=== PATIENT | female | born 1985 | race Caucasian/White ===

== ENCOUNTER 2018-04-29 11:00 | Emergency (ER) | payer OTHER, SELFPAY ==
[2018-04-29] MEDS ORDERED: NA CHLORIDE 0.9% 1,000 ML ONE ×2 (11:54→13:47)
[2018-04-29 12:08] LABS: Absolute Lymphocytes (CBC) 0.7 K/uL (0.7-4.9); Absolute Neutrophil 12.2 K/uL (1.8-8.0); Basophils % 0.2 % (0-1.3); Hematocrit 42.8 % (36.0-45.0); Lymphocytes % 4.8 % (15.3-44.8); MCH 31.2 pg (27.0-35.0); MCV 89.3 fL (80-100); MPV 8.3 fL (7.6-11.3); Monocytes % 7.4 % (3.3-12.3); RBC Red Blood Cell Count 4.79 M/uL (3.86-4.86)
[2018-04-29 12:25] LABS: Albumin 3.9 g/dL (3.4-5.0); Bilirubin Direct 0.2 mg/dL (0-0.2); Bilirubin Total 0.9 mg/dL (0.2-1.0); Potassium 3.9 mmol/L (3.5-5.1); Protein, Total 8.2 g/dL (6.4-8.2)
--- NOTE | 2018-04-29 13:11 | RAD REPORT ---
EXAM DESCRIPTION: CT - Stone Protocol - 04/29/2018 12:47 pm CLINICAL HISTORY: Abdominal pain. vomiting and diarrhea COMPARISON: None. TECHNIQUE: Computed axial tomography of the abdomen pelvis was obtained without oral or IV contrast. Lack of IV and oral contrast limits evaluation of solid organs, bowel, and vessels. Coronal reformat tj images were obtained and reviewed. All CT scans are performed using dose optimization technique as appropriate and may include automated exposure control or mA/KV adjustment according to patient size. FINDINGS: A renal calculus is not seen. An ureteral calculus is not noted. A bladder calculus is not present. The liver, spleen, pancreas and adrenals appear grossly normal There is no evidence of diverticulitis. The appendix appears normal Wall of portions the right colon appears mildly thickened IMPRESSION: Negative for a genitourinary calculus Mild right colitis is suspected
[2018-04-29] MEDS ORDERED: metroNIDAZOLE 500 MG TABLET ONE (13:47)
[2018-04-29] MEDS ORDERED: CIPROFLOXACIN 400mg IV 400 MG/200 ML BAG IV ONE (13:47)
[2018-04-29] MEDS ORDERED: DICYCLOMINE HCL 10 MG CAP ONE (14:14)
--- NOTE | 2018-04-29 14:21 | ER ---
Nurse's Notes [facility] Name: Tiarra Young Age: 32 yrs Sex: Female : 1985 Arrival Date: 04/29/2018 Time: 11:02 Bed 15 Private MD: Diagnosis: Other and unspecified noninfective gastroenteritis and colitis Presentation: 04/29 11:08 Presenting complaint: Patient states: Vomiting, diarrhea, body aches, abdominal pain aj1 and fever for the past 2 days. TMax or 100.0. Transition of care: patient was not received from another setting of care. Onset of symptoms was April 27, 2018. Risk Assessment: Do you want to hurt yourself or someone else? Patient reports no desire to harm self or others. Initial Sepsis Screen: Does the patient meet any 2 criteria? HR > 90 bpm. No. Patient's initial sepsis screen is negative. Does the patient have a suspected source of infection? Yes: Acute abdominal pain. Care prior to arrival: None. 11:08 Method Of Arrival: Ambulatory aj1 11:08 Acuity: LETA 3 aj1 Triage Assessment: 11:12 General: Appears in no apparent distress. uncomfortable, Behavior is calm, cooperative, aj1 appropriate for age. Pain: Complains of pain in right upper quadrant and left upper quadrant Pain radiates to back Pain currently is 9 out of 10 on a pain scale. Neuro: Level of Consciousness is awake, alert, obeys commands. Cardiovascular: Patient's skin is warm and dry. Respiratory: Airway is patent Respiratory effort is even, unlabored, Respiratory pattern is regular, symmetrical. GI: Reports cramping, diarrhea, nausea, vomiting. 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 - Social history:: Smoking status: Patient/guardian denies using tobacco. - Ebola Screening: : Patient denies travel to an Ebola-affected area in the 21 days before illness onset. Screenin:16 Abuse screen: Denies threats or abuse. Nutritional screening: No deficits noted. rb1 Tuberculosis screening: No symptoms or risk factors identified. Fall Risk None identified. Assessment: 11:16 General: Appears uncomfortable, Behavior is calm, cooperative, Reports fever for. Pain: rb1 Complains of pain in generalized bodyaches. Neuro: Level of Consciousness is awake, alert, obeys commands, Oriented to person, place, time, situation. Cardiovascular: Capillary refill < 3 seconds is brisk in bilateral fingers. Respiratory: Airway is patent Respiratory effort is even, unlabored, Respiratory pattern is regular, symmetrical. GI: Reports diarrhea, nausea, vomiting. : No signs and/or symptoms were reported regarding the genitourinary system. Derm: Skin is pink, warm \T\ dry. 12:05 Reassessment: Patient appears in no apparent distress at this time. No changes from rb1 previously documented assessment. 13:00 Reassessment: Patient appears in no apparent distress at this time. Patient and/or rb1 family updated on plan of care and expected duration. Pain level reassessed. Patient is alert, oriented x 3, equal unlabored respirations, skin warm/dry/pink. Family at bedside. 14:25 Reassessment: Discharge pending due to IV antibiotics infusiing. rb1 15:00 Reassessment: Patient appears in no apparent distress at this time. Patient and/or rb1 family updated on plan of care and expected duration. Pain level reassessed. Patient is alert, oriented x 3, equal unlabored respirations, skin warm/dry/pink. Vital Signs: 11:12 BP 125 / 88; Pulse 102; Resp 16; Temp 97.0(TE); Pulse Ox 98% on R/A; Weight 71.21 kg aj1 (R); Height 5 ft. 6 in. (167.64 cm) (R); Pain 9/10; 11:47 BP 115 / 66 Supine; Pulse 84; Resp 15; Pulse Ox 100% on R/A; rb1 11:49 BP 117 / 80 Sitting; Pulse 96; Resp 16; Pulse Ox 100% on R/A; rb1 11:51 BP 130 / 70 Standing; Pulse 98; Resp 15; Pulse Ox 98% on R/A; rb1 12:30 BP 124 / 63; Pulse 74; Resp 16; Pulse Ox 100% on R/A; rb1 13:30 BP 120 / 96; Pulse 88; Resp 17; Pulse Ox 100% ; rb1 14:30 BP 124 / 87; Pulse 89; Resp 16; Pulse Ox 100% on R/A; rb1 11:12 Body Mass Index 25.34 (71.21 kg, 167.64 cm) aj1 ED Course: 11:02 Patient arrived in ED. as 11:11 Triage completed. aj1 11:12 Arm band placed on Patient placed in an exam room. aj1 11:15 Anastasiia Rueda, RN is Primary Nurse. rb1 11:16 Patient has correct armband on for positive identification. Placed in gown. Bed in low rb1 position. Call light in reach. Side rails up X 1. Pulse ox on. NIBP on. 11:25 Cheri Ga FNP-C is PHCP. snw 11:25 Antonino Mclaughlin MD is Attending Physician. snw 11:55 Missed attempt(s): 20 gauge in right antecubital area. Bleeding controlled, band aid dh3 applied, catheter tip intact. 12:00 Initial lab(s) drawn, by nm, sent to lab. Inserted saline lock: 20 gauge in left dh3 antecubital area, using aseptic technique. Blood collected. 12:45 CT completed. Patient moved to CT via wheelchair. Patient moved back from CT. cw1 12:46 CT Stone Protocol In Process Unspecified. EDMS 15:10 No provider procedures requiring assistance completed. IV discontinued, intact, rb1 bleeding controlled, No redness/swelling at site. Pressure dressing applied. Administered Medications: 12:01 Drug: NS 0.9% 2000 ml Route: IV; Rate: 1 bolus; Site: left antecubital; rb1 15:00 Follow up: IV Status: Completed infusion rb1 13:45 Drug: Flagyl 500 mg Route: PO; rb1 14:10 Follow up: Response: No adverse reaction rb1 13:49 Drug: Cipro 400 mg Volume: 200 ml; Route: IVPB; Infused Over: 60 mins; Site: left rb1 antecubital; 15:00 Follow up: Response: No adverse reaction rb1 14:10 Drug: Bentyl 20 mg Route: PO; rb1 14:40 Follow up: Response: No adverse reaction; Pain is decreased rb1 Outcome: 14:21 Discharge ordered by . snw 15:10 Patient left the ED. rb1 15:10 Discharged to home ambulatory, with family. rb1 15:10 Condition: stable 15:10 Discharge instructions given to patient, Instructed on discharge instructions, follow up and referral plans. medication usage, Demonstrated understanding of instructions, follow-up care, medications, Prescriptions given X 4. Signatures: Dispatcher [employer] EDZohra Irving RN RN aj1 Cheri Ga, POWDER MILL OPERATOR-C POWDER MILL OPERATOR-Csnw Cecilia Carrillo Crystal cw1 Anastasiia Rueda RN RN rb1 Lissette Mendoza 3 Corrections: (The following items were deleted from the chart) 12:05 11:47 BP 115 / 66; Pulse 84bpm; Resp 15bpm; Pulse Ox 100% RA; rb1 rb1 12:05 11:49 BP 117 / 80; Pulse 96bpm; Resp 16bpm; Pulse Ox 100% RA; rb1 rb1 13:50 11:45 Flagyl 500 mg PO rb1 rb1 16:12 15:17 Patient left the ED. rb1 rb1
--- NOTE | 2018-04-29 14:22 | EDPHYS ---
Physician Documentation [facility] Name: Tiarra Young Age: 32 yrs Sex: Female : 1985 Arrival Date: 04/29/2018 Time: 11:02 Bed 15 Private MD: ED Physician Antonino Mclaughlin HPI: 04/29 11:56 This 32 yrs old Female presents to ER via Ambulatory with complaints of snw Vomiting. 11:56 The patient presents to the emergency department with nausea, vomiting, diarrhea, snw abdominal pain. Onset: The symptoms/episode began/occurred suddenly, 2 day(s) ago, and became persistent. The symptoms are aggravated by nothing. Associated signs and symptoms: The patient has no apparent associated signs or symptoms. Severity of symptoms: At their worst the symptoms were mild moderate. The patient has not experienced similar symptoms in the past. The patient has been recently seen at an urgent care, just prior to arrival, for similar complaints, and was sent to the [facility] Emergency Department for further evaluation. 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 - Social history:: Smoking status: Patient/guardian denies using tobacco. - Ebola Screening: : Patient denies travel to an Ebola-affected area in the 21 days before illness onset. ROS: 11:56 Constitutional: Negative for fever, chills, and weight loss, Eyes: Negative for injury, snw pain, redness, and discharge, ENT: Negative for injury, pain, and discharge, Neck: Negative for injury, pain, and swelling, Cardiovascular: Negative for chest pain, palpitations, and edema, Respiratory: Negative for shortness of breath, cough, wheezing, and pleuritic chest pain, Back: Negative for injury and pain, : Negative for injury, bleeding, discharge, and swelling, MS/Extremity: Negative for injury and deformity, Skin: Negative for injury, rash, and discoloration, Neuro: Negative for headache, weakness, numbness, tingling, and seizure. 11:56 Abdomen/GI: Positive for abdominal pain, nausea, vomiting, and diarrhea. Exam: 11:53 Head/Face: Normocephalic, atraumatic. flushed Eyes: Pupils equal round and reactive snw to light, extra-ocular motions intact. Lids and lashes normal. Conjunctiva and sclera are non-icteric and not injected. Cornea within normal limits. Periorbital areas with no swelling, redness, or edema. ENT: Nares patent. No nasal discharge, no septal abnormalities noted. Tympanic membranes are normal and external auditory canals are clear. Oropharynx with no redness, swelling, or masses, exudates, or evidence of obstruction, uvula midline. Mucous membranes moist. Neck: Trachea midline, no thyromegaly or masses palpated, and no cervical lymphadenopathy. Supple, full range of motion without nuchal rigidity, or vertebral point tenderness. No Meningismus. Chest/axilla: Normal chest wall appearance and motion. Nontender with no deformity. No lesions are appreciated. Respiratory: Lungs have equal breath sounds bilaterally, clear to auscultation and percussion. No rales, rhonchi or wheezes noted. No increased work of breathing, no retractions or nasal flaring. Abdomen/GI: Soft, non-tender, with normal bowel sounds. No distension or tympany. No guarding or rebound. No evidence of tenderness throughout. Back: No spinal tenderness. No costovertebral tenderness. Full range of motion. Skin: Warm, dry with normal turgor. Normal color with no rashes, no lesions, and no evidence of cellulitis. MS/ Extremity: Pulses equal, no cyanosis. Neurovascular intact. Full, normal range of motion. Neuro: Awake and alert, GCS 15, oriented to person, place, time, and situation. Cranial nerves II-XII grossly intact. Motor strength 5/5 in all extremities. Sensory grossly intact. Cerebellar exam normal. Normal gait. 11:53 Constitutional: The patient appears alert, awake, uncomfortable. 11:53 Cardiovascular: Rate: tachycardic, Rhythm: regular, Pulses: no pulse deficits are appreciated, Heart sounds: normal. Vital Signs: 11:12 BP 125 / 88; Pulse 102; Resp 16; Temp 97.0(TE); Pulse Ox 98% on R/A; Weight 71.21 kg aj1 (R); Height 5 ft. 6 in. (167.64 cm) (R); Pain 9/10; 11:47 BP 115 / 66 Supine; Pulse 84; Resp 15; Pulse Ox 100% on R/A; rb1 11:49 BP 117 / 80 Sitting; Pulse 96; Resp 16; Pulse Ox 100% on R/A; rb1 11:51 BP 130 / 70 Standing; Pulse 98; Resp 15; Pulse Ox 98% on R/A; rb1 12:30 BP 124 / 63; Pulse 74; Resp 16; Pulse Ox 100% on R/A; rb1 13:30 BP 120 / 96; Pulse 88; Resp 17; Pulse Ox 100% ; rb1 14:30 BP 124 / 87; Pulse 89; Resp 16; Pulse Ox 100% on R/A; rb1 11:12 Body Mass Index 25.34 (71.21 kg, 167.64 cm) aj1 MDM: 11:25 Patient medically screened. snw 14:23 Data reviewed: vital signs, nurses notes. Data interpreted: Pulse oximetry: on room air snw is 100 %. Interpretation: normal. Counseling: I had a detailed discussion with the patient and/or guardian regarding: the historical points, exam findings, and any diagnostic results supporting the discharge/admit diagnosis, lab results, radiology results, the need for outpatient follow up, to return to the emergency department if symptoms worsen or persist or if there are any questions or concerns that arise at home. Special discussion: Based on the patient's Hx, exam, and Dx evaluation, there is no indication for emergent surgery or inpatient Tx. It is understood by the patient/guardian that if the Sx's persist or worsen they need to return immediately for re-evaluation. Based on the history and exam findings, there is no indication for further emergent testing or inpatient evaluation. I discussed with the patient/guardian the need to see the primary care provider for further evaluation of the symptoms. 04/29 11:26 Order name: Urine Culture snw 04/29 11:26 Order name: Urine Microscopic Only snw 04/29 11:40 Order name: Basic Metabolic Panel; Complete Time: 12:25 snw 04/29 11:40 Order name: CBC with Diff; Complete Time: 12:09 snw 04/29 11:40 Order name: Hepatic Function; Complete Time: 12:25 snw 04/29 11:40 Order name: Lipase; Complete Time: 12:25 snw 04/29 11:31 Order name: Orthostatics; Complete Time: 12:02 snw 04/29 12:26 Order name: CT Stone Protocol; Complete Time: 13:16 snw 04/29 11:40 Order name: IV Saline Lock; Complete Time: 12:04 snw 04/29 11:40 Order name: Labs collected and sent; Complete Time: 12:04 snw Administered Medications: 12:01 Drug: NS 0.9% 2000 ml Route: IV; Rate: 1 bolus; Site: left antecubital; rb1 15:00 Follow up: IV Status: Completed infusion rb1 13:45 Drug: Flagyl 500 mg Route: PO; rb1 14:10 Follow up: Response: No adverse reaction rb1 13:49 Drug: Cipro 400 mg Volume: 200 ml; Route: IVPB; Infused Over: 60 mins; Site: left rb1 antecubital; 15:00 Follow up: Response: No adverse reaction rb1 14:10 Drug: Bentyl 20 mg Route: PO; rb1 14:40 Follow up: Response: No adverse reaction; Pain is decreased rb1 Disposition: 15:25 Co-signature as Attending Physician, Antonino Mclaughlin MD I agree with the assessment and kdr plan of care. Disposition: 04/29/18 14:21 Discharged to Home. Impression: Other and unspecified noninfective gastroenteritis and colitis. - Condition is Stable. - Discharge Instructions: Colitis. - Prescriptions for Bentyl 20 mg Oral Tablet - take 1 tablet by ORAL route every 6 hours As needed; 20 tablet. Flagyl 500 mg Oral Tablet - take 1 tablet by ORAL route every 8 hours for 10 days; 30 tablet. Cipro 500 mg Oral Tablet - take 1 tablet by ORAL route every 12 hours for 7 days; 14 tablet. promethazine 25 mg Oral Tablet - take 1 tablet by ORAL route every 6 hours As needed; 20 tablet. - Work release form, Medication Reconciliation Form, Thank You Letter, Antibiotic Education, Prescription Opioid Use form. - Follow up: Private Physician; When: 2 - 3 days; Reason: Recheck today's complaints, Continuance of care, Re-evaluation by your physician. Follow up: Emergency Department; When: As needed; Reason: Worsening of condition. Signatures: Dispatcher [employer] EDMS Zohra Hall RN RN aj1 Antonino Mclaughlin MD MD kdr Therrien, Shelly, TANK CAR MECHANIC-C TANK CAR MECHANIC-Csnw Anastasiia Rueda, RN RN rb1 Corrections: (The following items were deleted from the chart) 11:43 11:26 Urine Dipstick-Ancillary ordered. [facility] ms 11:46 11:26 Urine Test ordered. [facility] ms 15:17 14:21 04/29/2018 14:21 Discharged to Home. Impression: Other and unspecified rb1 noninfective gastroenteritis and colitis. Condition is Stable. Forms are Medication Reconciliation Form, Thank You Letter, Antibiotic Education, Prescription Opioid Use. Follow up: Private Physician; When: 2 - 3 days; Reason: Recheck today's complaints, Continuance of care, Re-evaluation by your physician. Follow up: Emergency Department; When: As needed; Reason: Worsening of condition. [facility]
[2018-04-29 16:38] LABS: Urine Bacteria <20 /HPF (<20); Urine Culture Reflex Order NOT NEEDED; Urine RBC <5 /HPF (NONE SEEN)
== END 2018-04-29 15:17 | disposition home or self-care (01) ==
LOC: ER 11:00
DX: K52.89 Other specified noninfective gastroenteritis and colitis (principal)
CPT/HCPCS: 36415; 74176; 76377; 80048; 80076; 81015; 83690; 85025; 87086; 87088; 96361; 96374; 99284; J0744; J7030